=== PATIENT | female | born 1990 | race Caucasian/White ===

== ENCOUNTER 2018-09-25 17:40 | Emergency (ER) | payer BC ==
[2018-09-25 18:31] LABS: ABS Basophils 0 10^3/ul (0-0.2); ABS Eosinophils 0 10^3/ul (0-0.6); ABS Lymphocytes 1.8 10^3/ul (1.0-4.8); ABS Monocytes 0.5 10^3/ul (0-0.8); ABS Neutrophils 6.7 10^3/ul (1.5-7.7); ABS Nucleated RBC 0 10^3/ul; Eosinophil % 0.2 %; Hematocrit 39 % (33-41); Hemoglobin 13.2 g/dL (12.0-16.0); Lymphocyte % 19.8 %; Mean Corpuscular HGB Conc 34 g/dL (31-36); Mean Corpuscular Hemoglobin 33 pg (27-31); Mean Corpuscular Volume 95 fL (80-97); Nucleated Red Blood Cells % 0; Platelet Count 318 10^3/uL (150-450); Red Blood Count 4.06 10^6 /uL (3.70-4.87); Red Cell Distribution Width 12 % (10.5-15); White Blood Count 9.1 10^3/uL (3.5-10.8)
[2018-09-25 18:48] LABS: ALT 12 U/L (7-52); AST 15 U/L (13-39); Albumin 4.5 g/dL (3.2-5.2); Alkaline Phosphatase 42 U/L (34-104); Anion Gap 7 mmol/L (2-11); BUN/Creatinine Ratio 12.3 (8-20); Blood Urea Nitrogen 8 mg/dL (6-24); C Reactive Protein < 1.00 mg/L (<8.01); CO2 Carbon Dioxide 28 mmol/L (22-32); Calcium 9.6 mg/dL (8.6-10.3); Chloride 104 mmol/L (101-111); EGFR African American 131.3 (>60); EGFR Non-African American 108.5 (>60); Globulin 2.3 g/dL (2-4); Glucose 162 mg/dL (70-100); Potassium 3.7 mmol/L (3.5-5.0); Sodium 139 mmol/L (135-145); Total Protein 6.8 g/dL (6.4-8.9)
[2018-09-25 18:54] LABS: HCG Pregnancy 299.78 mIU/mL
[2018-09-25 21:27] LABS: Urine Appearance Clear; Urine Bacteria Absent (Absent); Urine Bilirubin Negative (Negative); Urine Blood 3+ (Negative); Urine Color Yellow; Urine Glucose Negative (Negative); Urine Ketones Negative (Negative); Urine Nitrite Negative (Negative); Urine Protein Negative (Negative); Urine Red Blood Cell Trace(0-2/hpf) (Absent); Urine Specific Gravity 1.006 (1.010-1.030); Urine Squamous Epithelial Cell Present (Absent); Urine Urobilinogen Negative (Negative); Urine White Blood Cell 1+(6-10/hpf) (Absent)
[2018-09-25] MEDS ORDERED: Acetaminophen TAB* 325 MG PO ONE (21:48)
--- NOTE | 2018-09-25 21:51 | ED ---
- HPI Summary HPI Summary: This patient is a 27 year old F presenting to [facility] accompanied by with a chief complaint of vaginal blood spotting that began yesterday. Patient states she is 5 weeks . The patient rates the pain 7/10 in severity. Symptoms aggravated by nothing. Symptoms alleviated by nothing. Patient reports suprapubic abdominal cramping. Patient states her last menstrual period was on . Patient states she learned of her from a home test. - History of Current Complaint Chief Complaint: EDOBProblems Stated Complaint: 5 WKS PREG CRAMPING /SPOTTING PER PT Time Seen by Provider: 09/25/18 17:56 Hx Obtained From: Patient Chief Complaint: Vaginal Bleeding Onset/Duration: Started Days Ago, Atraumatic, Still Present Timing: Constant Severity: Moderate Current Severity: Moderate Pain Intensity: 7 Location of Pain: Suprapubic Character: Cramping Aggravating Factors: Nothing Alleviating Factors: Nothing - Allergies/Home Medications Allergies/Adverse Reactions: Allergies Allergy/AdvReac Type Severity Reaction Status Date / Time No Known Allergies Allergy Verified 09/25/18 17:49 Home Medications: Home Medications NK [No Home Medications Reported] 09/25/18 [History Confirmed 09/25/18] PMH/Surg Hx/FS Hx/Imm Hx Previously Healthy: Yes Opthamlomology History: Denies: Hx Legally Blind EENT History: Denies: Hx Deafness Infectious Disease History: No Infectious Disease History: Denies: Traveled Outside the [place] in Last 30 Days - Family History Known Family History: Positive: Diabetes - Social History Occupation: Employed Full-time Lives: With Family Alcohol Use: None Hx Substance Use: No Substance Use Type: Reports: None Hx Tobacco Use: No Smoking Status (MU): Never Smoked Tobacco Review of Systems Positive: Abdominal Pain Genitourinary: Other - Positive vaginal spotting All Other Systems Reviewed And Are Negative: Yes Physical Exam - Summary Physical Exam Summary: VITAL SIGNS: Reviewed. GENERAL: Patient is a well-developed and nourished female who is lying comfortable in the stretcher. Patient is not in any acute respiratory distress. HEAD AND FACE: No signs of trauma. No ecchymosis, hematomas or skull depressions. No sinus tenderness. EYES: PERRLA, EOMI x 2, No injected conjunctiva, no nystagmus. EARS: Hearing grossly intact. Ear canals and tympanic membranes are within normal limits. MOUTH: Oropharynx within normal limits. NECK: Supple, trachea is midline, no adenopathy, no JVD, no carotid bruit, no c- spine tenderness, neck with full ROM. CHEST: Symmetric, no tenderness at palpation LUNGS: Clear to auscultation bilaterally. No wheezing or crackles. CVS: Regular rate and rhythm, S1 and S2 present, no murmurs or gallops appreciated. ABDOMEN: Soft, bilateral pelvic tenderness. No signs of distention. No rebound no guarding, and no masses palpated. Bowel sounds are normal. EXTREMITIES: FROM in all major joints, no edema, no cyanosis or clubbing. NEURO: Alert and oriented x 3. No acute neurological deficits. Speech is normal and follows commands. SKIN: Dry and warm - Physical Exam Triage Information Reviewed: Yes Vital Signs Reviewed: Yes Diagnostics - Vital Signs Vital Signs Temp Pulse Resp BP Pulse Ox 09/25/18 19:49 99.2 F 78 15 134/84 100 09/25/18 17:45 99.3 F 100 18 129/94 100 - Laboratory Lab Results: Lab Results 09/25/18 09/25/18 09/25/18 Range/Units 18:22 18:22 18:22 WBC 9.1 (3.5-10.8) 10^3/uL RBC 4.06 (3.70-4.87) 10^6 /uL Hgb 13.2 (12.0-16.0) g/dL Hct 39 (33-41) % MCV 95 (80-97) fL MCH 33 H (27-31) pg MCHC 34 (31-36) g/dL RDW 12 (10.5-15) % Plt Count 318 (150-450) 10^3/uL MPV 9.0 (7.4-10.4) fL Neut % (Auto) 73.6 % Lymph % (Auto) 19.8 % [place] % (Auto) 5.9 % Eos % (Auto) 0.2 % Baso % (Auto) 0.5 % Absolute Neuts (auto) 6.7 (1.5-7.7) 10^3/ul Absolute Lymphs (auto) 1.8 (1.0-4.8) 10^3/ul Absolute Monos (auto) 0.5 (0-0.8) 10^3/ul Absolute Eos (auto) 0 (0-0.6) 10^3/ul Absolute Basos (auto) 0 (0-0.2) 10^3/ul Absolute Nucleated RBC 0 10^3/ul Nucleated RBC % 0 Sodium 139 (135-145) mmol/L Potassium 3.7 (3.5-5.0) mmol/L Chloride 104 (101-111) mmol/L Carbon Dioxide 28 (22-32) mmol/L Anion Gap 7 (2-11) mmol/L BUN 8 (6-24) mg/dL Creatinine 0.65 (0.51-0.95) mg/dL Est GFR ( Amer) 131.3 (>60) Est GFR (Non-Af Amer) 108.5 (>60) BUN/Creatinine Ratio 12.3 (8-20) Glucose 162 H (70-100) mg/dL Calcium 9.6 (8.6-10.3) mg/dL Total Bilirubin 0.50 (0.2-1.0) mg/dL AST 15 (13-39) U/L ALT 12 (7-52) U/L Alkaline Phosphatase 42 (34-104) U/L C-Reactive Protein < 1.00 (<8.01) mg/L Total Protein 6.8 (6.4-8.9) g/dL Albumin 4.5 (3.2-5.2) g/dL Globulin 2.3 (2-4) g/dL Albumin/Globulin Ratio 2.0 (1-3) Beta HCG, Quant 299.78 mIU/mL Urine Color Urine Appearance Urine pH (5-9) Ur Specific [place] (1.010-1.030) Urine Protein (Negative) Urine Ketones (Negative) Urine Blood (Negative) Urine Nitrate (Negative) Urine Bilirubin (Negative) Urine Urobilinogen (Negative) Ur Leukocyte Esterase (Negative) Urine WBC (Auto) (Absent) Urine RBC (Auto) (Absent) Ur Squamous Epith Cells (Absent) Urine Bacteria (Absent) Urine Glucose (Negative) Blood Type O Positive 09/25/18 Range/Units 21:05 WBC (3.5-10.8) 10^3/uL RBC (3.70-4.87) 10^6 /uL Hgb (12.0-16.0) g/dL Hct (33-41) % MCV (80-97) fL MCH (27-31) pg MCHC (31-36) g/dL RDW (10.5-15) % Plt Count (150-450) 10^3/uL MPV (7.4-10.4) fL Neut % (Auto) % Lymph % (Auto) % [place] % (Auto) % Eos % (Auto) % Baso % (Auto) % Absolute Neuts (auto) (1.5-7.7) 10^3/ul Absolute Lymphs (auto) (1.0-4.8) 10^3/ul Absolute Monos (auto) (0-0.8) 10^3/ul Absolute Eos (auto) (0-0.6) 10^3/ul Absolute Basos (auto) (0-0.2) 10^3/ul Absolute Nucleated RBC 10^3/ul Nucleated RBC % Sodium (135-145) mmol/L Potassium (3.5-5.0) mmol/L Chloride (101-111) mmol/L Carbon Dioxide (22-32) mmol/L Anion Gap (2-11) mmol/L BUN (6-24) mg/dL Creatinine (0.51-0.95) mg/dL Est GFR ( Amer) (>60) Est GFR (Non-Af Amer) (>60) BUN/Creatinine Ratio (8-20) Glucose (70-100) mg/dL Calcium (8.6-10.3) mg/dL Total Bilirubin (0.2-1.0) mg/dL AST (13-39) U/L ALT (7-52) U/L Alkaline Phosphatase (34-104) U/L C-Reactive Protein (<8.01) mg/L Total Protein (6.4-8.9) g/dL Albumin (3.2-5.2) g/dL Globulin (2-4) g/dL Albumin/Globulin Ratio (1-3) Beta HCG, Quant mIU/mL Urine Color Yellow Urine Appearance Clear Urine pH 6.0 (5-9) Ur Specific [place] 1.006 L (1.010-1.030) Urine Protein Negative (Negative) Urine Ketones Negative (Negative) Urine Blood 3+ A (Negative) Urine Nitrate Negative (Negative) Urine Bilirubin Negative (Negative) Urine Urobilinogen Negative (Negative) Ur Leukocyte Esterase 3+ A (Negative) Urine WBC (Auto) 1+(6-10/hpf) A (Absent) Urine RBC (Auto) Trace(0-2/hpf) (Absent) Ur Squamous Epith Cells Present A (Absent) Urine Bacteria Absent (Absent) Urine Glucose Negative (Negative) Blood Type Result Diagrams: 09/25/18 18:22 09/25/18 18:22 Lab Statement: Any lab studies that have been ordered have been reviewed, and results considered in the medical decision making process. - Additional Comments Diagnostic Additional Comments: Transvaginal US reveals, per radiologist, right parovarian ectopic . ED physician has reviewed this radiology report. Course/Dx - Course Course Of Treatment: This patient is a 27 year old F presenting to [facility] accompanied by with a chief complaint of vaginal blood spotting that began yesterday. Physical Exam Findings: Bilateral pelvic tenderness. Transvaginal US reveals, per radiologist, right parovarian ectopic . Bloodwork and urine obtained. In the ED course the patient was given acetaminophen and methotrexate. Consult with Dr. Heller (senior stack engineer) at 0014. She agrees to see the pt in the ED. Consult with Dr. Heller (senior stack engineer) at 0127. She recommended patient be discharge home with follow up from her office. Patient will be discharged with follow up from Dr. Heller. The patient is agreeable with this plan. - Diagnoses Provider Diagnoses: Ectopic - Provider Notifications Discussed Care Of Patient With: Corinne Heller Time Discussed With Above Provider: 00:14 Instructed by Provider To: Other - Consult with Dr. Heller (senior stack engineer) at 0014. She agrees to see the pt in the ED. Consult with Dr. Heller (senior stack engineer) at 0127. She recommended patient be discharge home with follow up from her office. Discharge - Sign-Out/Discharge Documenting (check all that apply): Patient Departure - Discharge home Patient Received Moderate/Deep Sedation with Procedure: No - Discharge Plan Condition: Stable Disposition: HOME Patient Education Materials: Ectopic (DC) Referrals: Corinne Heller MD [Medical Doctor] - 09/26/18 Additional Instructions: RETURN TO THE EMERGENCY DEPARTMENT FOR NEW OR WORSENING SYMPTOMS - Attestation Statements Document Initiated by Scribe: Yes Documenting Scribe: Katy Benjamin Provider For Whom Scribe is Documenting (Include Credential): Dr. Vanessa Gomez MD Scribe Attestation: I, Katy Benjamin, scribed for Dr. Vanessa Gomez MD on 09/26/18 at 0205. Status of Scribe Document: Ready
[2018-09-26] MEDS ORDERED: Methotrexate* 25 MG/ML 2 ML VIAL IM ONE (01:19)
[2018-09-26 02:22] VITALS: BP 126/81
--- NOTE | 2018-09-26 03:11 | CONS ---
CONSULTATION REPORT: DATE OF CONSULT: 09/26/18 - EMERGENCY DEPT CHIEF COMPLAINT: Vaginal bleeding. HISTORY OF PRESENT ILLNESS: Patient is a 27-year-old 1, para 0 who comes in with bleeding with an LMP in early August putting her at approximately 5 weeks. Patient noted she was having some cramping and on pelvic ultrasound no intrauterine was identified , but a right ovary that measured 3.4 x 2.0 x 2.0 with a hyperechoic paraovarian mass measuring 2.1 x 1.2 x 1.2, left ovary measured 3.7 x 3.0 x 2.1 with corpus luteum measuring 2.2 x 1.9 x 1.5. The radiologic interpretation is right paraovarian ectopic . Patient states she has been having normal activity that she is not in any current pain and that the chief reason for coming in was actually vaginal bleeding. Patient is tearful at the thought of this ectopic . Blood type is 0 positive. PAST MEDICAL HISTORY: Unremarkable. PAST SURGICAL HISTORY: None. PAST GYNECOLOGICAL HISTORY: Denies history of endometriosis, PID, or tubal infection. SOCIAL HISTORY: She is with her current partner for 7 years. Uses withdrawal for contraception. Denies tobacco, alcohol or substance abuse. PHYSICAL EXAMINATION: Temp is 98.5, pulse is 84, blood pressure is 115/67, O2 sats 99. Constitutional: Pleasant female, in no apparent distress. Abdomen is scaphoid and nontender. No rebound. No guarding. No masses. Pelvic Exam: External genitalia within normal limits. Vagina without masses, firm cervix. No cervical motion tenderness. Uterus is anteverted, not enlarged. Adnexa, no masses appreciated and nontender bilaterally. DIAGNOSTIC STUDIES/LAB DATA: Labs: WBC is 9.1, hemoglobin 13.2, hematocrit 39 , platelet count 318,000. Creatinine 0.625, AST 15, ALT 12. Beta hCG is 299. ASSESSMENT AND PLAN: Patient is a 27-year-old 1, para 0 with a right paraovarian ectopic . Reviewed options which include surgical treatment versus medical management, which would include methotrexate therapy. Patient has opted for methotrexate therapy at a dosing of 50 mg/m2 giving a calculated dose around 80 mg IM. Patient has been given up-to-date handouts on basics and beyond the basics for ectopic , which include treatment options and precautions were given for methotrexate therapy and reviewed risks and signs and symptoms of ruptured ectopic . Patient has been instructed that she will need to follow up in the office on for repeat beta hCG and then again on Wednesday for beta hCG, which can be drawn to the lab at the hospital. Patient is aware that approximately 90% ectopic pregnancies are treated successfully with methotrexate therapy and that she will need subsequent blood draws every week once we have documented a greater than 15% drop in beta hCG levels. TIME SPENT: Length of time spent with patient and partner was greater than 20 minutes. [id number]/[facility] #: [id number] JC
== END 2018-09-26 02:21 | disposition home or self-care (01) ==
LOC: ED 17:40
DX: O00.90 Unspecified ectopic pregnancy without intrauterine pregnancy (principal); R10.9 Unspecified abdominal pain
CPT/HCPCS: 36415; 76817; 80053; 81003; 81015; 84702; 85025; 86140; 86900; 86901; 87086; 96372; 99283; A9270-GY; J9250

== ENCOUNTER 2020-06-03 01:22 | Inpatient (IN) ==
[2020-06-03] MEDS ORDERED: Lactated Ringers 1000 ml BAG 1,000 ML IV ONE ×2 (04:56→07:59)
[2020-06-03 05:32] LABS: Hematocrit 42 % (35-47); Hemoglobin 14.6 g/dL (12.0-16.0); Mean Corpuscular HGB Conc 35 g/dL (31-36); Mean Corpuscular Hemoglobin 33 pg (27-31); Mean Corpuscular Volume 94 fL (80-97); Mean Platelet Volume 9.7 fL (7.4-10.4); Platelet Count 276 10^3/uL (150-450); Red Blood Count 4.47 10^6 /uL (3.70-4.87); Red Cell Distribution Width 12 % (10-15); White Blood Count 20.7 10^3/uL (3.5-10.8)
[2020-06-03 05:56] LABS: Urine Benzodiazepine Screen None Detected (None Detect); Urine Cannabinoids Screen None Detected (None Detect); Urine Opiates Screen None Detected (None Detect)
[2020-06-03 06:18] LABS: ABS Basophils 0.1 10^3/ul (0-0.2); ABS Lymphocytes 1.9 10^3/ul (1.0-4.8); ABS Monocytes 0.7 10^3/ul (0-0.8); Eosinophil % 0.1 %; Lymphocyte % 9.3 %
[2020-06-03] MEDS ORDERED: OBEPIDURAL 250 ML EPIDURAL ONE (07:09)
[2020-06-03] MEDS ORDERED: Bupivacaine 0.25% SDV PF 10 ML VIAL INJ ONE (07:25)
[2020-06-03] MEDS ORDERED: EPHEDrine (Pressors) 50 MG/ML VIAL IV PUSH PRN ×2 (07:59)
[2020-06-03] MEDS ORDERED: Sodium Citrate/Citric Acid LIQ 15 ML UDC PO PRN (07:59)
[2020-06-03] MEDS ORDERED: Phenylephrine 40 mcg/mL 10mL (400mcg) SYRINGE IV PUSH PRN ×2 (07:59)
[2020-06-03] MEDS ORDERED: OBEPIDURAL 250 ML EPIDURAL SCH (08:00)
[2020-06-03] MEDS ORDERED: Lactated Ringers 1000 ml BAG 1,000 ML IV SCH ×2 (08:00→16:00)
[2020-06-03] MEDS ORDERED: Oxytocin in LR 20 UNITS/1,000 ML BAG IVPB ONE (11:36)
[2020-06-03] MEDS ORDERED: Glycerin ADULT 2.4 gm SUPP PR PRN (15:14)
[2020-06-03] MEDS ORDERED: Witch Hazel PAD JAR TOPICAL PRN (15:14)
[2020-06-03] MEDS ORDERED: Lidocaine 2% JELLY 6 ML TOPICAL PRN (15:23)
[2020-06-03] MEDS ORDERED: Oxytocin in LR 20 UNITS/1,000 ML BAG IVPB SCH (16:00)
[2020-06-03] MEDS ORDERED: Lidocaine 1% VIAL 10 MG/ML VIAL ONE (18:52)
[2020-06-04 07:05] LABS: ABS Basophils 0.1 10^3/ul (0-0.2); ABS Lymphocytes 2.6 10^3/ul (1.0-4.8); ABS Monocytes 1.5 10^3/ul (0-0.8); ABS Neutrophils 18.6 10^3/ul (1.5-7.7); Eosinophil % 0.2 %; Hematocrit 32 % (35-47); Hemoglobin 11.1 g/dL (12.0-16.0); Lymphocyte % 11.4 %; Mean Corpuscular HGB Conc 35 g/dL (31-36); Mean Corpuscular Hemoglobin 33 pg (27-31); Mean Corpuscular Volume 95 fL (80-97); Mean Platelet Volume 9.8 fL (7.4-10.4); Platelet Count 196 10^3/uL (150-450); Red Blood Count 3.36 10^6 /uL (3.70-4.87); Red Cell Distribution Width 12 % (10-15); White Blood Count 22.8 10^3/uL (3.5-10.8)
[2020-06-05 08:26] VITALS: BP 118/62
== END 2020-06-05 12:57 | disposition home or self-care (01) | DRG 807 ==
LOC: MCHOBOUT 01:22 → MCHOB 04:56
PROVIDERS: ADMIT Midwife; ATTEND Midwife

== ENCOUNTER 2022-09-09 02:12 | Inpatient (IN) ==
[2022-09-09] MEDS ORDERED: Lactated Ringers 1000 ml BAG 1,000 ML IV ONE ×2 (04:49→06:00)
[2022-09-09 05:03] LABS: Urine Benzodiazepine Screen None Detected (None Detect); Urine Cannabinoids Screen None Detected (None Detect); Urine Opiates Screen None Detected (None Detect)
[2022-09-09 05:11] LABS: ABS Lymphocytes 1.4 10^3/ul (1.0-4.8); ABS Neutrophils 18.4 10^3/ul (1.5-7.7); Eosinophil % 0.1 %; Hematocrit 40 % (35-47); Hemoglobin 13.4 g/dL (12.0-16.0); Lymphocyte % 6.7 %; Mean Corpuscular HGB Conc 33 g/dL (31-36); Mean Corpuscular Hemoglobin 31 pg (27-31); Mean Corpuscular Volume 94 fL (80-97); Mean Platelet Volume 10.7 fL (7.4-10.4); Platelet Count 241 10^3/uL (150-450); Red Blood Count 4.31 10^6 /uL (3.70-4.87); Red Cell Distribution Width 13 % (10-15); White Blood Count 20.8 10^3/uL (3.5-10.8)
[2022-09-09] MEDS ORDERED: Lidocaine 1.5% EPI 1:200,000 30 ML SDV ONE (05:22)
[2022-09-09] MEDS ORDERED: OBEPIDURAL (200 ML) 200 ML EPIDURAL ONE (05:24)
[2022-09-09] MEDS ORDERED: Phenylephrine 40 mcg/mL 10mL (400mcg) SYRINGE IV PUSH PRN ×2 (06:00)
[2022-09-09] MEDS ORDERED: Lactated Ringers 1000 ml BAG 1,000 ML IV SCH ×2 (06:00→13:00)
[2022-09-09] MEDS ORDERED: OBEPIDURAL (200 ML) 200 ML EPIDURAL SCH (06:00)
[2022-09-09] MEDS ORDERED: Sodium Citrate/Citric Acid LIQ 15 ML UDC PO PRN (06:00)
[2022-09-09] MEDS ORDERED: Methylergonovine 0.2 mg AMPULE 1 ml AMP ONE (12:33)
[2022-09-09] MEDS ORDERED: Oxytocin in LR 20,000 MILLI.UNIT/1,000 ML BAG IV ONE (12:34)
[2022-09-09] MEDS ORDERED: Dibucaine 1% OINT 28.35 GM TUBE PR PRN (12:59)
[2022-09-09] MEDS ORDERED: Methylergonovine 0.2 mg AMPULE 1 ml AMP IM PRN (12:59)
[2022-09-09] MEDS ORDERED: Witch Hazel PAD JAR TOPICAL PRN (12:59)
[2022-09-09] MEDS ORDERED: Oxytocin in LR 20,000 MILLI.UNIT/1,000 ML BAG IV SCH (13:00)
[2022-09-09] MEDS ORDERED: Lidocaine 1% VIAL 10 MG/ML VIAL 30 ML ONE (13:09)
[2022-09-10 06:34] LABS: ABS Lymphocytes 2.6 10^3/ul (1.0-4.8); ABS Monocytes 0.9 10^3/ul (0-0.8); ABS Neutrophils 11.7 10^3/ul (1.5-7.7); Eosinophil % 0.3 %; Hematocrit 36 % (35-47); Hemoglobin 11.8 g/dL (12.0-16.0); Lymphocyte % 17.1 %; Mean Corpuscular HGB Conc 33 g/dL (31-36); Mean Corpuscular Hemoglobin 31 pg (27-31); Mean Corpuscular Volume 93 fL (80-97); Mean Platelet Volume 10.4 fL (7.4-10.4); Platelet Count 198 10^3/uL (150-450); Red Blood Count 3.86 10^6 /uL (3.70-4.87); Red Cell Distribution Width 13 % (10-15); White Blood Count 15.3 10^3/uL (3.5-10.8)
[2022-09-10 08:11] VITALS: BP 124/65
== END 2022-09-10 15:12 | disposition home or self-care (01) | DRG 560 ==
LOC: MCHOBOUT 02:12 → MCHOB 04:29
PROVIDERS: ADMIT Midwife; ATTEND Midwife